=== PATIENT | female | born 2000 | race Caucasian/White ===

== ENCOUNTER 2024-02-02 09:40 | Inpatient (IN) ==
--- NOTE | 2024-02-02 10:15 | Emergency Department Note ---
ED Provider Note History of Present Illness Chief Complaint: Vomiting Stated Complaint: VOMITING, ABD PAIN, WEAK Time Seen by Provider: 02/02/24 10:00 Source: patient Mode of arrival: ambulatory Limitations: no limitations This patient is a 23-year-old female who presents to the emergency department accompanied by her mother for evaluation of vomiting. Patient started vomiting 3 days ago. She has been unable to keep much of anything down since this started. She denies any abdominal pain or diarrhea associated with this. She was seen at urgent care yesterday and was prescribed Zofran. Her mother states that they were unsure if she had a UTI but prescribed her some antibiotics just in case. However, patient has not been taking these because she has been unable to keep them down. She has been taking the Zofran which has been helping and has decreased the episodes of vomiting. She last vomited 4 hours ago right after taking Zofran. She denies any recent sick contacts. Home Medications Medication Instructions Recorded Confirmed Type levonorgestrel 0.15 mg-ethinyl 1 tab PO DAILY #84 tabs 02/19/23 02/01/24 Rx estradiol 0.03 mg tablet (Kurvelo (28)) nitrofurantoin 100 mg PO BID #10 caps 02/01/24 02/01/24 Rx monohydrate/macrocrystals 100 mg capsule (Macrobid) ondansetron 4 mg disintegrating 4 mg PO Q6H PRN nausea and 02/01/24 02/01/24 Rx tablet vomiting #14 tabs Allergies Allergy/AdvReac Type Severity Reaction Status Date / Time No Known Allergies Allergy Verified 02/01/24 09:55 Past Med/Surg History Problem List Vomiting Skin lesion control counseling Encounter for screening and preventative care VSD (ventricular septal defect) Encounter for well adolescent visit (Chronic) Encounter for removal of sutures (Acute) Medical History Hx of cleft palate Surgical History Hx of external ear surgery History of mandibular surgery Family History Denies family history of Ovarian cancer Prostate cancer Myocardial infarction Breast cancer Colorectal cancer Social History Smoking Status: Never smoker Second Hand Exposure: No; Do You Dip or Chew Tobacco: No; Hx Alcohol Use: No Hx Substance Use: No Preferred Language: Kenyan Communication Ability: Effective Electric Shaver Mechanic Required: No marital status: Single Current Living Situation: Family current occupational status: employed current occupation: cook How many Children do You have: 0 Feels Safe at Home: Yes Childhood Exposure to Second-Hand Smoke: No Diet: regular caffeine: Yes Dental Care, Regularly: Yes Physical Activity Frequency: Daily Seatbelt Use: always Sunscreen Use: Yes Physical Exam Vital Signs Vital Signs - 24 hr 02/02/24 09:41 02/02/24 10:00 02/02/24 10:09 Temperature 36.6 C Temperature Source Temporal Artery Scan Pulse Rate 111 H 96 H Pulse Rate [Apical] 83 Pulse Rhythm [Apical] Regular Respiratory Rate 18 15 Respiratory Depth Normal Blood Pressure 124/84 Blood Pressure [Left Arm] 119/79 Blood Pressure Mean 97 Blood Pressure Mean [Left Arm] 92 Pulse Oximetry 97 Sepsis Recent Fever Within 48 Hours No Sepsis New/Unexplained Change in Mental Status N/A Sepsis Action Taken by Nursing No Action Required VITALS: Vitals are noted on the nurse's note and reviewed by myself. GENERAL: This is a 23-year-old female, in no acute distress. EYES: Pupils equal round and reactive to light and accommodation. MOUTH: Mucous membranes dry. NECK: Supple without nuchal rigidity. No lymphadenopathy. HEART: Harsh systolic murmur noted. LUNGS: Clear to auscultation bilaterally without wheezes, rales or rhonchi. ABDOMEN: Positive bowel sounds x 4. Soft, nontender to palpation. NEURO: Patient was alert and oriented to person place and time. Medical Decision Making Differential Diagnosis Gastroenteritis, food borne illness, infections, appendicitis, diverticulitis, inflammatory bowel disease, obstruction, GI bleed, biliary pathology, volvulus, as well as other pathologies. Discharge Plan Visit Data Chief Complaint: Vomiting Stated Complaint: VOMITING, ABD PAIN, WEAK ED Provider: Cliff Ervin ED Midlevel Provider: Setphanie Terrazas Forms Stand Alone Forms: [facility] [employer] [employer] Prescriptions Prescriptions: No Action levonorgestrel-ethinyl estrad [Kurvelo (28)] 0.15-0.03 mg tablet 1 tab PO DAILY Qty: 84 3RF nitrofurantoin monohyd/m-cryst [Macrobid] 100 mg capsule 100 mg PO BID Qty: 10 0RF Rx Instructions: must administer with a meal/food ondansetron 4 mg tablet,disintegrating 4 mg PO Q6H PRN (Reason: nausea and vomiting) Qty: 14 0RF Referrals Referrals: Stacey June MD [Primary Care Provider] -
[2024-02-02] MEDS: SODIUM CHLORIDE 0.9% 1,000 ML IV ONE (10:25)
[2024-02-02] MEDS: PROMETHAZINE 12.5 MG/50.5 ML BAG IV STA (10:25)
[2024-02-02 10:35] LABS: Albumin Globulin Ratio 1.6 (0.9-2); Albumin Level 5.6 gm/dl (3.4-5.0); BUN Creatinine Ratio 29.5 (10-20); Bilirubin,Total 2.4 mg/dl (0.2-1.0); Calcium 10.5 mg/dl (8.6-10.3); Creatinine Clr Calc Pharmacy 67.4 ml/min; Est GFR (African American) 99.2 ml/min; Est GFR (Non-African American) 85.6 ml/min; Globulin 3.4 gm/dl (2.5-4.0); Potassium 3.2 mmol/L (3.5-5.1)
[2024-02-02 10:46] LABS: Basophils # (auto) 0.06 K/uL (0.00-0.20); Basophils % (auto) 0.5 %; Eosinophils # (auto) 0.05 K/uL (0.00-0.50); Eosinophils % (auto) 0.4 %; Hemoglobin 18.3 g/dl (12.0-16.0); Immature Granulocytes # (auto) 0.03 K/uL (0.01-0.20); Immature Granulocytes % (auto) 0.2 %; Lymphocytes # (auto) 1.19 K/uL (1.20-3.40); Lymphocytes % (auto) 9.6 %; Mean Corpuscular Hemoglobin 29.7 pg (25.0-34.0); Mean Corpuscular Hgb Conc 33.9 g/dL (32.0-36.0); Mean Corpuscular Volume 87.5 fL (80.0-100.0); Mean Platelet Volume 9.4 fL (9.4-12.4); Monocytes # (auto) 0.96 K/uL (0.11-0.59); Monocytes % (auto) 7.7 %; Neutrophils # (auto) 10.12 K/uL (1.40-6.50); Neutrophils % (auto) 81.6 %; Platelet Count 310 K/uL (130-400); RDW Coefficient of Variation 13.4 % (11.5-14.5); RDW Standard Deviation 41.6 fL (36.4-46.3); Red Blood Count 6.17 M/uL (4.20-5.40); White Blood Count 12.41 K/ul (4.8-10.8)
[2024-02-02] MEDS: MANNITOL 25% 12.5 GM/50 ML VIAL IV ONE (11:15)
[2024-02-02 12:17] LABS: Appearance Urine Clear (Clear); Bacteria Urine Automated None Seen (None Seen); Bilirubin Urine Negative (Negative); Blood Urine 3+ (Negative); Color Urine Dark Yellow; Glucose Urine UA Negative (Negative); Ketones Urine 3+ (Negative); Leukocyte Esterase Urine 1+ (Negative); Nitrite Urine Negative (Negative); Protein Urine 2+ (Negative); Specific Gravity Urine 1.034 (1.000-1.030); Urobilinogen Urine Negative (Negative); pH Urine 6.5 (4.5-7.5)
[2024-02-02 12:45] LABS: Pregnancy Test, Serum Negative (Negative)
[2024-02-02] MEDS: OPTIRAY 320 100ml IV ONE (14:10)
[2024-02-02] MEDS: D5W AND NSS 1,000 ML IV SCH (14:26)
[2024-02-02 14:49] LABS: Adenovirus PCR Not Detected (NotDetected); Bordetella parapertussis PCR Not Detected (NotDetected); Bordetella pertussis PCR Not Detected (NotDetected); Chlamydia pneumoniae PCR Not Detected (NotDetected); Coronavirus 229E PCR Not Detected (NotDetected); Coronavirus CoV-2 (COVID19)PCR Not Detected (NotDetected); Coronavirus HKU1 PCR Not Detected (NotDetected); Coronavirus NL63 PCR Not Detected (NotDetected); Coronavirus OC43PCR Not Detected (NotDetected); Human Metapneumovirus PCR Not Detected (NotDetected); Influenza A PCR Not Detected (NotDetected); Influenza B PCR Not Detected (NotDetected); Mycoplasma pneumoniae PCR Not Detected (NotDetected); Parainfluenza Virus 1 PCR Not Detected (NotDetected); Parainfluenza Virus 2 PCR Not Detected (NotDetected); Parainfluenza Virus 3 PCR Not Detected (NotDetected); Parainfluenza Virus 4 PCR Not Detected (NotDetected); Respiratory Syncytial VirusPCR Not Detected (NotDetected); Rhinovirus/Enterovirus PCR Not Detected (NotDetected)
--- NOTE | 2024-02-02 14:52 | CT Scan Report ---
ABDOMEN AND PELVIS CT WITH IV CONTRAST CT DOSE: 342.03 mGy.cm HISTORY: Acute upper abdominal pain with weight loss upper abd pain, vomiting, recent weight loss TECHNIQUE: Multiaxial CT images of the abdomen and pelvis were performed following the IV administrat ion of Optiray, A dose lowering technique was utilized adhering to the principles of ALARA. COMPARISON STUDY: None. FINDINGS: Mild left hemidiaphragm elevation. The lung bases are clear. No pneumatosis or pneumoperito neum. Unremarkable spleen, pancreas and adrenal glands. Mild distention of the gallbladder. There is a vascular shunt suggested within the right hepatic lobe on image 63 series 3. Patency of the hepatic and portal veins. Subcentimeter probable cyst of the inferior pole left kidney. No hydronephrosis. U rinary bladder wall thickening with partial distention. Unremarkable uterus and adnexa. Aorta and IVC are unremarkable. No lymphadenopathy. Mild wall thickening of the distal esophagus. There is marked distention of the fluid-filled stomach which is twisted around a gastrostomy tract of the left upper abdominal wall. Associated gastric wall thickening is also present. Transition point is noted within the mesentery around the tract on image 138 series 3. High-grade narrowing at the gastroduodenal junction. Normal orientation of the duodenu m and proximal jejunum. There is mild to moderate colonic fecal retention. No small bowel obstruction . Noninflamed appendix. Unremarkable soft tissues. No acute fracture. IMPRESSION: 1. Gastric outlet obstruction with twisting/volvulus of the distal stomach around the old gastrostomy tract. Surgical consultation is needed. 2. No small bowel obstruction, pneumatosis or pneumoperitoneum. 3. Noninflamed appendix. ACT 112: Negative or not required by law. The above report was generated using voice recognition software. It may contain grammatical, syntax o r spelling errors. Electronically signed by: Mark Brush M.D. 02/02/2024 2:50 PM
[2024-02-02] MEDS: BENZOCAINE/TETRACAIN/BUTAM 50 APPLN/5 GM CAN EXT STA (15:12)
[2024-02-02] MEDS: BENZOCAINE/TETRACAIN/BUTAM 50 APPLN/5 GM CAN EXT ONE (15:28)
[2024-02-02] MEDS: LIDOCAINE VISCOUS 2% 15 ML UDC TOP ONE (15:29)
[2024-02-02] MEDS: LIDOCAINE VISCOUS 2% 15 ML UDC ONE (15:29)
--- NOTE | 2024-02-02 17:01 | History & Physical Report ---
Date of Service February 02, 2024 Assessment & Plan (1) Gastric volvulus: Plan: Admit to med telemetry Currently hemodynamically stable, stable on room air, and in no acute distress Presented to ED due to multiple days of recurrent nausea and vomiting CT of the abdomen pelvis with IV contrast shows twisting/volvulus of the distal stomach around the old gastrostomy tract. General Surgery has been consulted and evaluated the patient, since she is clinically stable, without discomfort, and with improved nausea/vomiting plan will be to admit her to the medicine service overnight with IV hydration correction of electrolyte abnormalities with plans for OR tomorrow Status post 1 L normal saline in the ED Will start maintenance LR overnight for hydration, continue strict n.p.o. Bilateral SCDs for DVT prophylaxis As needed Tylenol for pain, as needed Zofran for nausea/vomiting AM CBC, CMP, mag, PT/INR (2) Nausea and vomiting: Plan: Symptoms likely related to her acute gastric volvulus Has only had 1 episode of nausea/vomiting since arrival to the ED Will obtain chest x-ray to rule out possible aspiration Continue as needed Zofran (3) Hypokalemia: Plan: Potassium of 3.2 Likely related to recurrent nausea/vomiting poor oral intake Will obtain magnesium level on admission Will give an initial 10 mEq IV KCl x 2 bags for now Monitor a.m. renal function electrolytes Plan The patient was discussed Dr. 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 Patient was seen at the [facility] urgent care clinic on 02/01/2024 diagnosed with UTI. She had been discharged with a course of Bactrim but could not keep this medication down due to her recurrent nausea and vomiting. She was noted to be tachycardic on arrival heart rate in the 110's but was otherwise stable. Labs were significant for a leukocytosis of 12 with neutrophil predominance of 10, anion gap of 16 with bicarb within normal limits, potassium at 3.2, chloride of 93, UA with 2+ protein, 3+ ketones, 3+ blood, 1+ leukocyte Estrace, 6-10 WBC, 6-10 RBC, with 3-5 epithelial cells and no bacteria, and full respiratory BioFire negative. CT of the abdomen pelvis with IV contrast was read as positive for gastric outlet obstruction with twisting/volvulus of the distal stomach around the old gastrostomy tract. Surgical consultation is needed. No small bowel obstruction, pneumatosis, or pneumoperitoneum, noninflamed appendix. General surgery evaluated the patient and attempted to place an NG tube which was unsuccessful due to the patient's congenital abnormalities. Plan is to admit the patient to our service for ongoing hydration and stabilization with plans to take the patient to the OR on 02/03/2024. Prior to admission the patient was given 1 L normal saline, 12.5 mg promethazine. Patient was sitting in bed in no acute distress at time of the exam with her parents bedside, history is obtained from both. They confirm the above history. Patient confirms she is vomited once since arrival to the ED. She denies any discomfort at this time including fever/chills, chest pain, shortness of breath, abdominal pain, dysuria/hematuria, melena or diarrhea, recent trauma. They confirm that her previous PEG tube was removed years ago. They understand the current plan is to admit her to our service with ongoing hydration and stabilization of electrolytes with plans for the OR tomorrow. Please refer to Dr. Haas's attestation for any changes to the treatment plan Allergies Allergy/AdvReac Type Severity Reaction Status Date / Time No Known Allergies Allergy Verified 02/02/24 10:29 Home Medications Medication Instructions Recorded Confirmed Type levonorgestrel 0.15 mg-ethinyl 1 tab PO DAILY #84 tabs 02/19/23 02/02/24 Rx estradiol 0.03 mg tablet (Teresa (28)) ondansetron 4 mg disintegrating 4 mg PO Q6H PRN nausea and 02/01/24 02/02/24 Rx tablet vomiting #14 tabs fluoride (sodium) 1.1 % dental 1 applic PO BID 02/02/24 02/02/24 History paste Past Med/Surg History Problem List (Updated 02/02/24 @ 17:18 by Jorge Cornejo PA-C) Hypokalemia Nausea and vomiting Dehydration Hx of cleft palate Gastric volvulus Vomiting Skin lesion control counseling Encounter for screening and preventative care VSD (ventricular septal defect) Encounter for well adolescent visit (Chronic) Encounter for removal of sutures (Acute) Medical History Hx of cleft palate Surgical History Hx of external ear surgery History of mandibular surgery Family History Denies family history of Ovarian cancer Prostate cancer Myocardial infarction Breast cancer Colorectal cancer Social History Smoking Status: Never smoker Second Hand Exposure: No; Do You Dip or Chew Tobacco: No; Hx Alcohol Use: No Hx Substance Use: No Preferred Language: Persian Communication Ability: Effective Communication Ability Comment: bone anchored hearing aid Log Feeder Required: No Beliefs That Will Affect Care: None marital status: Single Current Living Situation: Family current occupational status: employed current occupation: cook How many Children do You have: 0 Other Information That Helps Us Care for You: No Feels Safe at Home: Yes Safety Concerns: Feels Safe At This Time Childhood Exposure to Second-Hand Smoke: No Diet: regular caffeine: Yes Dental Care, Regularly: Yes Physical Activity Frequency: Daily Seatbelt Use: always Sunscreen Use: Yes Assistive Devices: Glasses and Other Assistive Devices Comment: bone anchored hearing aid Physical Exam Physical Exam: Physical Exam: General: In no acute distress, stated age, nontoxic-appearing HEENT: Chronic congenital skull and facial abnormalities without acute trauma, no scleral icterus, pupils around round, symmetrical, and reactive to light, dry mucus membranes, trachea midline, no thyromegaly Chest/Pulm: No respiratory distress, symmetrical chest expansion, clear breath sounds throughout Cardiac: RRR, 3/6 systolic murmur noted Abdomen: Negative for ascites and bruising, hypoactive bowel sounds, soft, non-tender to palpation throughout Musculoskeletal: No acute trauma Extremities: Radial, dorsalis pedis, and posterior tibial pulses are intact and symmetrical, no edema noted in the BL LE's Skin: Warm, dry, no rashes , lesions, or scars noted Neuro: Alert and oriented to person, place, no focal defects, no tremors noted Psych: No acute distress, calm and cooperative during the exam Results & Data Results & Data Vital Signs (Past 12 Hours) Vital Signs Temp Pulse Pulse Resp BP BP Pulse Ox 02/02/24 12:00 93 H 18 114/79 99 02/02/24 10:09 96 H 02/02/24 10:00 83 15 119/79 02/02/24 09:41 36.6 C 111 H 18 124/84 97 O2 Del Method 02/02/24 12:00 Room Air 02/02/24 10:09 02/02/24 10:00 02/02/24 09:41 Laboratory Results Abnormal lab results 02/02/24 02/02/24 Range/Units 10:01 12:02 WBC 12.41 H (4.8-10.8) K/ul RBC 6.17 H (4.20-5.40) M/uL Hgb 18.3 H (12.0-16.0) g/dl Hct 54.0 H (37.0-47.0) % Neut # (Auto) 10.12 H (1.40-6.50) K/uL Lymph # (Auto) 1.19 L (1.20-3.40) K/uL Upson # (Auto) 0.96 H (0.11-0.59) K/uL Potassium 3.2 L (3.5-5.1) mmol/L Chloride 93 L (98-107) mmol/L Anion Gap 16 H (3-11) BUN 28 H (6-23) mg/dl BUN/Creatinine Ratio 29.5 H (10-20) Glucose 106 H (70-99(Fasting)) mg/dl Calcium 10.5 H (8.6-10.3) mg/dl Total Bilirubin 2.4 H (0.2-1.0) mg/dl Total Protein 9.0 H (6.0-8.3) gm/dl Albumin 5.6 H (3.4-5.0) gm/dl Ur Specific [place] 1.034 H (1.000-1.030) Urine Protein 2+ H (Negative) Urine Ketones 3+ H (Negative) Urine Blood 3+ H (Negative) Ur Leukocyte Esterase 1+ H (Negative) Urine WBC (Auto) 6-10 H (0-5) /hpf Urine RBC (Auto) 6-10 H (0-2) /hpf U Hyaline Cast (Auto) 3-5 H (0-2) /lpf U Epithel Cells (Auto) 3-5 H (0-2) /hpf Diagnostic Findings Abdomen/Pelvis CT 02/02/24 13:[address] WITH IV CONTRAST CT DOSE: 342.03 mGy.cm HISTORY: Acute upper abdominal pain with weight loss upper abd pain, vomiting, recent weight loss TECHNIQUE: Multiaxial CT images of the abdomen and pelvis were performed following the IV administration of Optiray, A dose lowering technique was utilized adhering to the principles of ALARA. COMPARISON STUDY: None. FINDINGS: Mild left hemidiaphragm elevation. The lung bases are clear. No pneumatosis or pneumoperitoneum. Unremarkable spleen, pancreas and adrenal glands. Mild distention of the gallbladder. There is a vascular shunt suggested within the right hepatic lobe on image 63 series 3. Patency of the hepatic and portal veins. Subcentimeter probable cyst of the inferior pole left kidney. No hydronephrosis. Urinary bladder wall thickening with partial distention. Unremarkable uterus and adnexa. Aorta and IVC are unremarkable. No lymphadenopathy. Mild wall thickening of the distal esophagus. There is marked distention of the fluid-filled stomach which is twisted around a gastrostomy tract of the left upper abdominal wall. Associated gastric wall thickening is also present. Transition point is noted within the mesentery around the tract on image 138 series 3. High-grade narrowing at the gastroduodenal junction. Normal orientation of the duodenum and proximal jejunum. There is mild to moderate colonic fecal retention. No small bowel obstruction. Noninflamed appendix. Unremarkable soft tissues. No acute fracture. IMPRESSION: 1. Gastric outlet obstruction with twisting/volvulus of the distal stomach around the old gastrostomy tract. Surgical consultation is needed. 2. No small bowel obstruction, pneumatosis or pneumoperitoneum. 3. Noninflamed appendix. ACT 112: Negative or not required by law. The above report was generated using voice recognition software. It may contain grammatical, syntax or spelling errors. Electronically signed by: Mark Brush M.D. 02/02/2024 2:50 PM Code Status & VTE Plan VTE Prophylaxis Plan VTE Prophylaxis will be ordered: Yes Supervising Physician Co-Signing Physician Notes I personally saw and examined the patient. I verified all tan points and agree with Jorge Cornejo PA-C with the following exceptions and/or additions: 23 year old female with Treacher-Abdul syndrome presents to the ER with intractable nausea and vomiting O/E Facial abnormalities consistent with Treacher-Abdul syndrome, HS RRR, no murmurs, Chest CTAB, Abdo SNT A/P Gastric volvulus - consult general surgery, NPO, failed NG tube, IV fluids, replace electrolytes as needed PG Care Time/CCT Total # of Minutes Spent Total Time Spent with Patient: Total time spent is greater than 50% in coordination of care (as documented) at patient's floor/unit and/or counseling patient: Coding [place] [address] INT INP/OBS CARE 2/MIN Patient Type Established Medical Decision Making High Complexity Diagnoses Gastric volvulus K31.89 Nausea and vomiting R11.2 Hypokalemia E87.6
[2024-02-02] MEDS ORDERED: ACETAMINOPHEN 1,000 MG/100 ML VIAL IV PRN (17:04)
--- NOTE | 2024-02-02 17:08 | Surgery Consultation ---
Date of Consultation February 02, 2024 Assessment & Plan (1) Gastric volvulus: She is currently stable with no abdominal pain. Clearly this will need to be repaired. I had a long discussion with her and her parents. It is likely from a fistulous tract from her old gastrostomy site. If I take down the fistulous tract they should be able to reduce the volvulus. This may or may not require partial gastrectomy. We discussed potential risks which include bleeding, infection, injury to other organs, blood clots etc. I would recommend she be admitted to the medicine service and have her electrolytes corrected and rehydrated. We will plan surgery tomorrow. I am going to plan on performing this laparoscopically although we did discuss there is always the potential for an open procedure if there are any issues. They agree with the plan. (2) VSD (ventricular septal defect): (3) Hx of cleft palate: (4) Dehydration: History of Present Illness History of Present Illness Kym is a very pleasant 23-year-old female who is accompanied by her parents. She has some developmental abnormalities primarily in the form of cleft palate and ventricular septal defects. She has had many surgeries on her palate. When she was an she had a feeding tube placed which was removed when she was 10. She was brought in because she has been vomiting and unable to keep anything down since . In hindsight the parents state that she is lost probably 10 to 12 pounds since late November. She denies any abdominal pain. Allergies Allergy/AdvReac Type Severity Reaction Status Date / Time No Known Allergies Allergy Verified 02/02/24 10:29 Home Medications Medication Instructions Recorded Confirmed Type levonorgestrel 0.15 mg-ethinyl 1 tab PO DAILY #84 tabs 02/19/23 02/02/24 Rx estradiol 0.03 mg tablet (Teresa (28)) ondansetron 4 mg disintegrating 4 mg PO Q6H PRN nausea and 02/01/24 02/02/24 Rx tablet vomiting #14 tabs fluoride (sodium) 1.1 % dental 1 applic PO BID 02/02/24 02/02/24 History paste Patient History Medical History Hx of cleft palate Surgical History Hx of external ear surgery History of mandibular surgery Family History Denies family history of Ovarian cancer Prostate cancer Myocardial infarction Breast cancer Colorectal cancer Social History Smoking Status: Never smoker Second Hand Exposure: No; Do You Dip or Chew Tobacco: No; Hx Alcohol Use: No Hx Substance Use: No Preferred Language: Hebrew Communication Ability: Effective Travel Assistant Required: No marital status: Single Current Living Situation: Family current occupational status: employed current occupation: cook How many Children do You have: 0 Feels Safe at Home: Yes Childhood Exposure to Second-Hand Smoke: No Diet: regular caffeine: Yes Dental Care, Regularly: Yes Physical Activity Frequency: Daily Seatbelt Use: always Sunscreen Use: Yes Review of Systems Review of Systems: All systems reviewed & are unremarkable except as noted in HPI & below Physical Exam Constitutional: WD/WN, vitals as above no acute distress and not ill appearing Eyes: PERRL, conjunctivae normal, anicteric sclerae EOM intact bilaterally ENMT: external ear and nose normal, oropharynx normal Ears: no hearing impairment Neck: trachea midline, no thyromegaly Respiratory: normal respiratory effort; no respiratory distress and does not use accessory muscles Cardiovascular: Rate/Rhythm: regular rate and regular rhythm Gastrointestinal (Abdomen): Soft. Nontender. There is a left upper quadrant old gastrostomy site that is well-healed. Skin: no rashes, warm and dry Psychiatric: Orientation: alert, oriented x 3 and cooperative Results & Data Vital Signs (Past 12 Hours) Vital Signs Temp Pulse Pulse Resp BP BP Pulse Ox 02/02/24 17:00 90 16 130/84 98 02/02/24 16:00 111 H 19 97 02/02/24 12:00 93 H 18 114/79 99 02/02/24 10:09 96 H 02/02/24 10:00 83 15 119/79 02/02/24 09:41 36.6 C 111 H 18 124/84 97 O2 Del Method 02/02/24 17:00 Room Air 02/02/24 16:00 Room Air 02/02/24 12:00 Room Air 02/02/24 10:09 02/02/24 10:00 02/02/24 09:41 PG Care Time/CCT Total # of Minutes Spent Total Time Spent with Patient: Total time spent is greater than 50% in coordination of care (as documented) at patient's floor/unit and/or counseling patient: Coding Level of Care Code 05116 IN/OBS CONSULT LVL 5,80M Diagnoses Gastric volvulus K31.89 VSD (ventricular septal defect) Q21.0 Hx of cleft palate Z87.730 Dehydration E86.0
--- NOTE | 2024-02-02 17:27 | XRay Report ---
XR chest 1V portable HISTORY: 23 years-old Female recurrent vomiting, monitor for aspiration acute chest pain with vomiti ng COMPARISON: CT of same day TECHNIQUE: AP view of the chest FINDINGS: Gaseous distention of the stomach redemonstrated. The lungs are clear. Heart is normal in size. No pn eumothorax or pleural effusion. The bones appear intact. IMPRESSION: 1. No acute process of the chest. 2. Distended stomach redemonstrated. ACT 112: Negative or not required by law. The above report was generated using voice recognition software. It may contain grammatical, syntax o r spelling errors. Electronically signed by: Mark Brush M.D. 02/02/2024 5:26 PM
[2024-02-02 17:36] LABS: Magnesium 2.4 mg/dl (1.7-2.4)
[2024-02-02] MEDS: ONDANSETRON INJ 2 MG/ML 2 ML VIAL IV PRN (18:01)
[2024-02-02] MEDS: POTASSIUM CHLORIDE / WTR 10 MEQ/100 ML PLCT IV SCH (18:01)
[2024-02-02] MEDS: LACTATED RINGER'S 1,000 ML IV SCH (19:23)
[2024-02-03 07:17] LABS: Basophils # (auto) 0.05 K/uL (0.00-0.20); Basophils % (auto) 0.5 %; Eosinophils # (auto) 0.12 K/uL (0.00-0.50); Eosinophils % (auto) 1.2 %; Hematocrit (blood only) 43.2 % (37.0-47.0); Hemoglobin 14.4 g/dl (12.0-16.0); Immature Granulocytes # (auto) 0.03 K/uL (0.01-0.20); Immature Granulocytes % (auto) 0.3 %; Lymphocytes # (auto) 1.15 K/uL (1.20-3.40); Lymphocytes % (auto) 11.9 %; Mean Corpuscular Hemoglobin 29.8 pg (25.0-34.0); Mean Corpuscular Hgb Conc 33.3 g/dL (32.0-36.0); Mean Corpuscular Volume 89.4 fL (80.0-100.0); Mean Platelet Volume 9.8 fL (9.4-12.4); Monocytes # (auto) 0.84 K/uL (0.11-0.59); Monocytes % (auto) 8.7 %; Neutrophils # (auto) 7.44 K/uL (1.40-6.50); Neutrophils % (auto) 77.4 %; Platelet Count 236 K/uL (130-400); RDW Standard Deviation 42.6 fL (36.4-46.3); Red Blood Count 4.83 M/uL (4.20-5.40); White Blood Count 9.63 K/ul (4.8-10.8)
[2024-02-03 07:27] LABS: Alanine Aminotransferase 10 U/L (7-52); Albumin Level 4.2 gm/dl (3.4-5.0); Alkaline Phosphatase 56 U/L (34-104); Anion Gap 7 (3-11); Aspartate Aminotransferase 13 U/L (13-39); BUN Creatinine Ratio 27.6 (10-20); Bilirubin,Total 1.7 mg/dl (0.2-1.0); Blood Urea Nitrogen 16 mg/dl (6-23); Calcium 8.9 mg/dl (8.6-10.3); Carbon Dioxide 32 mmol/L (21-32); Chloride 104 mmol/L (98-107); Creatinine Clr Calc Pharmacy 119.7 ml/min; Est GFR (African American) > 150.0 ml/min; Est GFR (Non-African American) 131.8 ml/min; Globulin 2.1 gm/dl (2.5-4.0); Glucose 104 mg/dl (70-99(Fasting)); Potassium 3.4 mmol/L (3.5-5.1); Sodium 143 mmol/L (136-145); Total Protein 6.3 gm/dl (6.0-8.3)
[2024-02-03 07:31] LABS: INR 1.1 (0.9-1.1)
--- NOTE | 2024-02-03 07:49 | Hospitalist Progress Note ---
Date of Service February 03, 2024 Assessment & Plan (1) Gastric volvulus: Plan: Presented to ED due to multiple days of recurrent nausea and vomiting, previous history of peg tube CT of the abdomen pelvis with IV contrast shows twisting/volvulus of the distal stomach around the old gastrostomy tract. plans for surgery 02/02 replete hypokalemia with 40 klc in maintenance fluids Bilateral SCDs for DVT prophylaxis (2) Nausea and vomiting: Plan: Symptoms likely related to her acute gastric volvulus Continue as needed Zofran (3) Hypokalemia: Plan The patient was discussed Dr. Haas time the admission Admission and Anticipated Discharge Date Admission Date: February 02, 2024 Results & Data Results & Data Vital Signs (Past 12 Hours) Vital Signs Temp Pulse Pulse Resp BP BP BP 02/03/24 07:46 97.7 F 75 18 115/76 02/03/24 04:12 98.4 F 70 18 02/03/24 01:10 64 02/03/24 00:00 98.6 F 71 16 114/73 02/02/24 23:03 70 14 111/70 Pulse Ox O2 Del Method 02/03/24 07:46 100 Room Air 02/03/24 04:12 97 Room Air 02/03/24 01:10 02/03/24 00:00 98 Room Air 02/02/24 23:03 97 Room Air PG Care Time/CCT Total # of Minutes Spent Total Time Spent with Patient: Total time spent is greater than 50% in coordination of care (as documented) at patient's floor/unit and/or counseling patient: Coding Diagnoses Gastric volvulus K31.89 Nausea and vomiting R11.2 Hypokalemia E87.6
[2024-02-03] MEDS: POTASSIUM CHLORIDE 40 MEQ in SODIUM CHLORIDE 0.9% 1,000 ML IV SCH (08:44)
[2024-02-03] MEDS: ACETAMINOPHEN 10MG/ML Custom 650 MG in EMPTY BAG 0 ML IV PRN (08:44)
[2024-02-03 11:35] LABS: Pregnancy Test, Urine Negative (Negative)
[2024-02-03] MEDS ORDERED: MoRPHine SULFATE 4 MG/ML 1 ML CARP\\VIAL IV PRN (12:44)
[2024-02-03] MEDS: MoRPHine SULFATE 2 MG/ML CARP IV PRN (12:49)
[2024-02-03 14:49] VITALS: RESP 20; TEMP 97.3; O2SAT 99
--- NOTE | 2024-02-03 16:13 | Surgery Progress Note ---
Date of Service February 03, 2024 Assessment & Plan (1) Gastric volvulus: Plan: Anesthesia has decided the case is too complex of an airway to perform here. she is going to be shipped to a tertiary center for defiitive care. she is stable from my standpoint for transfer Admission and Anticipated Discharge Date Admission Date: February 02, 2024 Subjective pt seen. feeling ok. no new complaints. Physical Exam Constitutional: WD/WN, vitals as above no acute distress and not ill appearing Eyes: PERRL, conjunctivae normal, anicteric sclerae EOM intact bilaterally Neck: trachea midline, no thyromegaly Respiratory: normal respiratory effort; no respiratory distress and does not use accessory muscles Cardiovascular: Rate/Rhythm: regular rate and regular rhythm Gastrointestinal (Abdomen): soft. nt. minimal distension. no change from yesterday Skin: no rashes, warm and dry Psychiatric: Orientation: alert, oriented x 3 and cooperative Results & Data Vital Signs (Past 12 Hours) Vital Signs Temp Pulse Pulse Resp BP BP Pulse Ox 02/03/24 14:49 36.3 C L 98 H 20 129/82 99 02/03/24 13:04 75 02/03/24 11:43 36.7 C 79 17 118/81 97 02/03/24 07:46 36.5 C 75 18 115/76 100 02/03/24 05:58 71 02/03/24 04:12 36.9 C 70 18 97 O2 Del Method 02/03/24 14:49 Room Air 02/03/24 13:04 02/03/24 11:43 Room Air 02/03/24 07:46 Room Air 02/03/24 05:58 02/03/24 04:12 Room Air PG Care Time/CCT Total # of Minutes Spent Total Time Spent with Patient: Total time spent is greater than 50% in coordination of care (as documented) at patient's floor/unit and/or counseling patient: Coding Level of Care Code 95723 SUB INP/OBS CARE 1/25MIN Diagnoses Gastric volvulus K31.89
--- NOTE | 2024-02-03 16:35 | Discharge Summary ---
Discharge Summary Date of Service February 03, 2024 Principal Dx & Hospital Course #1 = Principal Diagnosis (1) Gastric volvulus: Presented to ED due to multiple days of recurrent nausea and vomiting, previous history of peg tube CT of the abdomen pelvis with IV contrast shows twisting/volvulus of the distal stomach around the old gastrostomy tract. plans for surgery 02/02, anesthesia did not feel we could safely intubate given unable to pass ngt on multiple attempts and distended stomach Patient transferred to [facility] for expertise in anesthesia and airway management and resolution of gastric volvulus replete hypokalemia with 40 klc in maintenance fluids Bilateral SCDs for DVT prophylaxis (2) Nausea and vomiting: Symptoms likely related to her acute gastric volvulus Continue as needed Zofran (3) Hypokalemia: Potassium of 3.2 History of VSD per notes of 2019 stable measuring 2.8x1.8, follows at [facility] cardiology, normal EF (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 Patient was seen at the [facility] urgent care clinic on 02/01/2024 diagnosed with UTI. She had been discharged with a course of Bactrim but could not keep this medication down due to her recurrent nausea and vomiting. She was noted to be tachycardic on arrival heart rate in the 110's but was otherwise stable. Labs were significant for a leukocytosis of 12 with neutrophil predominance of 10, anion gap of 16 with bicarb within normal limits, potassium at 3.2, chloride of 93, UA with 2+ protein, 3+ ketones, 3+ blood, 1+ leukocyte Estrace, 6-10 WBC, 6-10 RBC, with 3-5 epithelial cells and no bacteria, and full respiratory BioFire negative. CT of the abdomen pelvis with IV contrast was read as positive for gastric outlet obstruction with twisting/volvulus of the distal stomach around the old gastrostomy tract. Surgical consultation is needed. No small bowel obstruction, pneumatosis, or pneumoperitoneum, noninflamed appendix. General surgery evaluated the patient and attempted to place an NG tube which was unsuccessful due to the patient's congenital abnormalities. Plan is to admit the patient to our service for ongoing hydration and stabilization with plans to take the patient to the OR on 02/03/2024. Prior to admission the patient was given 1 L normal saline, 12.5 mg promethazine. Patient was sitting in bed in no acute distress at time of the exam with her parents bedside, history is obtained from both. They confirm the above history. Patient confirms she is vomited once since arrival to the ED. She denies any discomfort at this time including fever/chills, chest pain, shortness of breath, abdominal pain, dysuria/hematuria, melena or diarrhea, recent trauma. They confirm that her previous PEG tube was removed years ago. They understand the current plan is to admit her to our service with ongoing hydration and stabilization of electrolytes with plans for the OR tomorrow. Please refer to Dr. Haas's attestation for any changes to the treatment plan Discharge Exam Constitutional Pleasant with intermittent distress in her abdomen. Cardiac exam shows systolic murmur as per VSD Abdomen was hypoactive bowel sounds fullness in the upper abdomen which is uncomfortable to exam but no rigid abdomen or acute abdomen Discharge Plan Discharge Items Patient Disposition: Transfer Acute Care Hospital Reason For Visit: GASTRIC VOLVULOUS, HYPOKALEMIA, UTI Discharge Diagnosis: gastric volvulus Treacher Abdul syndrome, craniofacial abnormalities abdominal pain and nausea Activity: Per Instructions section Non-emergency contact: Primary Care Provider and Specialist Call non-emergency contact if: your symptoms worsen Follow-up/Referrals: Stacey June MD [Primary Care Provider] - Diet: Nothing by Mouth Addtl Attending Provider Instructions: please follow dc instructions from [employer] Pending Studies at Discharge: No Stand-Alone Forms: My [facility] Skilled Items Patient informed of condition?: Yes DNR: No Discharge Level of Care: Other Communicable Disease: No Discharge Prognosis: Stable Lines: Peripheral IV Urinary Catheter: No Medications and DC Order Prescriptions: Continued levonorgestrel-ethinyl estrad [Kurvelo (28)] 0.15-0.03 mg tablet 1 tab PO DAILY Qty: 84 3RF ondansetron 4 mg tablet,disintegrating 4 mg PO Q6H PRN (Reason: nausea and vomiting) Qty: 14 0RF fluoride (sodium) 1.1 % paste 1 applic PO BID Rx Instructions: RX DIRECTIONS: USE SMALL AMOUNT TO BRUSH TEETH BID, SPIT OUT (DO NOT RINSE, EAT, OR DRINK FOR 30 MIN.) Discharge Orders: Discharge Order (Routine); Ordered 02/03/24 Ordered By: Sven Luna Admission Data Admit Date/Time: 02/02/24 17:02 Attending Provider: Sven Luna Admit Provider: Rd Haas Primary Care Provider: Stacey June Other Providers: Jose Azul; Rd Haas Hospital Stay Data Consultations 02/02/24 17:15 Consult General Surgery Routine 02/02/24 18:49 ED Decision to Admit Stat Procedures Performed Operation Date: 02/03/24 10:10 <No data on this case meets the specified criteria> Diagnostic Imagining Performed 02/02/24 13:41 CT abd pelvis IV con only Stat Pending Results Patient Have Any Pending Studies at Discharge: No Discharge Instructions Given to Patient (Per Discharging Provider) please follow dc instructions from [employer] Total Time Total Time Spent Total Time Spent (In Minutes): It required greater than 30 minutes to prepare this patient for discharge. Coding Level of Care Code 59605 INP/OBS DISCH >30 MIN Diagnoses Gastric volvulus K31.89 Nausea and vomiting R11.2 Hypokalemia E87.6 Treacher Abdul syndrome Q75.4
[2024-02-03 17:06] VITALS: BP 118/81; PULSE 99
== END 2024-02-03 17:15 | disposition short-term general hospital (02) | DRG 390 ==
LOC: ED 09:40 → 2N 17:02 → SUATTDRO 17:02 → 2N 23:03